=== PATIENT | male | born 1995 | race Caucasian/White ===

== ENCOUNTER → 2022-04-30 | Outpatient (CLI) | payer BC ==
--- NOTE | 2022-04-30 11:06 | Diagnostic Imaging Report ---
PROCEDURE: MRI lumbar spine. TECHNIQUE: Multiplanar, multisequence MRI of the lumbar spine was performed without contrast. INDICATION: Low back pain which radiates into the left lower extremity. FINDINGS: Lumbar spinal curvature and alignment are unremarkable. Vertebral body heights are maintained. Conus medullaris has a normal appearance at the T12 level. There is desiccation of the T12-L1 disc without significant protrusion or stenosis. At L1-L2, disc is unremarkable, and there is no evidence of stenosis. There is a small amount of right facet joint effusion. At L2-L3, there is diffuse disc desiccation and mild annular bulging with associated mild degenerative facet arthropathy resulting in mild bilateral neural foraminal stenosis. At L3-L4, disc is unremarkable without evidence of stenosis. At L4-L5, there is diffuse annular bulging of the disc with small T2 high signal focus along the posterior margin of the annulus indicating annular tear with minimal protrusion. This results in moderate bilateral neural foraminal stenosis, greater on the left. L5-S1 also demonstrates diffuse disc bulging and results in moderate bilateral neural foraminal stenosis. Modic type I changes are present at the disc adjacent to the L5-S1 disc. IMPRESSION: Localized degenerative disc disease, most pronounced at the T12-L1, L2-L3, L4-L5, and L5-S1 levels as described above. Dictated by: Dictated on workstation # [id number]
== END ==
LOC: RAD 08:45
PROVIDERS: ATTEND Nurse Practitioner Family
DX: M47.26 Other spondylosis with radiculopathy, lumbar region (principal); M51.16 Intervertebral disc disorders with radiculopathy, lumbar region; M51.15 Intervertebral disc disorders with radiculopathy, thoracolumbar region; M51.17 Intervertebral disc disorders with radiculopathy, lumbosacral region
CPT/HCPCS: 72148